=== PATIENT | male | born 2005 | race Caucasian/White ===

== ENCOUNTER 2023-08-18 08:49 | Outpatient (CLI) | payer BC ==
[2023-08-18] MEDS ORDERED: Iopamidol 370 76% 100 ML VIAL ONE (10:14)
== END 2023-08-18 08:50 | disposition home or self-care (01) ==
LOC: CT 08:49
DX: K82.4 Cholesterolosis of gallbladder (principal)
CPT/HCPCS: 74178; 82565; Q9967